=== PATIENT | male | born 1995 | race Caucasian/White ===

== ENCOUNTER → 2016-09-06 | Outpatient (CLI) | payer BC, OTHER ==
[~2016-09-06] MED LIST: ABL5 PO; AMX875 PO; ARIP1TAB8 PO; ATOM25CA PO; CLX20 PO; DEXM10TA PO; ESCI10TA17 PO; GUAN1TAB PO; GUAN1TAB12 PO; IBUP-1050 PO; LANS15TA2 PO; MISCCAP80 PO
--- NOTE | 2016-09-09 14:48 | POLYSOMNOGRAPH REPORT ---
CLINICAL DATA: A 20-year-old male with BMI of 25.5 referred by ENT for evaluation of possible sleep apnea, a history of swelling of his uvula and tonsils and reported loud snoring with awakenings through the night. He has fatigue. On the evening of 09/06/2016, a home sleep apnea test was performed using Vidmind type 3 monitor. RECORDING RESULTS: Total recording time was 10 hours. The patient's estimated sleep time and patient monitoring time was 7.1 hours. RESPIRATORY DATA: No evidence of clinically significant sleep apnea/hypopnea was documented. The SHAR was 1.7. There was 1 obstructive apneic episode and 11 hypopneic episodes recorded. The longest respiratory event recorded was 32 seconds. OXIMETRY DATA: No significant hypoxemia was seen. Oxygen kerri was 89%. Mean saturation was 93%. Time below 89% was 0 minutes. HEART RATE DATA: Heart rates ranged from 38 to 47 beats per minute. SNORING DATA: Snoring was recorded intermittently through the night. IMPRESSION: No evidence of clinically significant sleep apnea/hypopnea or nocturnal hypoxemia with an SHAR of 1.7 and an oxygen kerri of 89%. RECOMMENDATIONS: The patient should continue to practice good sleep hygiene. There was nothing on the current sleep study to suggest the need for CPAP, surgery, or an oral appliance. FREDAD
== END | disposition home or self-care (01) ==
LOC: C.NEUR 09:08
DX: G47.33 Obstructive sleep apnea (adult) (pediatric) (principal)

== ENCOUNTER 2016-11-11 14:28 | Emergency (ER) | payer BC, OTHER ==
[~2016-11-11] VITALS: Ht 175.3 cm; Wt 80.5 kg
[~2016-11-11 14:28] MED LIST changes: -AMX875 PO; -ARIP1TAB8 PO; -DEXM10TA PO; -ESCI10TA17 PO; -GUAN1TAB PO; -GUAN1TAB12 PO; -IBUP-1050 PO; -MISCCAP80 PO
[2016-11-11 14:51] VITALS: TEMP 37; Ht 175.3 cm; Wt 80.5 kg
[2016-11-11] MEDS ORDERED: SODIUM CHLORIDE 0.9% 1000ML 1,000 ML IV STA ×2 (15:57)
[2016-11-11 16:34] LABS: COMPLETE YES; EOS % 0.4 %; HEMATOCRIT 45.6 % (42-52); IG% 0.2 %; LYMPH % 32.8 %; MEAN CELL VOLUME 86.9 fL (80-100); MEAN CORPUSCULAR HEMOGLOBIN 29.5 pg (25-34); MEAN PLATELET VOLUME 9.3 fL (7.4-10.4); MONO % 7.9 %; NEUT % 58.7 %; PLATELET COUNT 182 K/uL (130-400); RED BLOOD COUNT 5.25 M/uL (4.7-6.1); WHITE BLOOD COUNT 5.19 K/uL (4.8-10.8)
[2016-11-11] MEDS ORDERED: ARIP1TAB8 PO (16:39)
[2016-11-11] MEDS ORDERED: ESCI10TA17 PO (16:48)
[2016-11-11] MEDS ORDERED: DEXM10TA PO (16:48)
[2016-11-11] MEDS ORDERED: GUAN1TAB12 PO (16:48)
[2016-11-11] MEDS ORDERED: IBUP-1050 PO (16:48)
[2016-11-11 16:52] LABS: BUN/CREATININE RATIO 10.1 (10-20); CREATININE 0.96 mg/dl (0.60-1.40); POTASSIUM 3.9 mmol/L (3.5-5.1)
[2016-11-11 18:02] LABS: URINE APPEARANCE CLEAR (CLEAR); URINE BILIRUBIN NEG (NEG); URINE COLOR DK YELLOW; URINE NITRITE NEG (NEG); URINE SPECIFIC GRAVITY 1.019 (1.000-1.030); UROBILINOGEN NEG (NEG); ZZUR CULT IF INDIC CLEAN CATCH NO
[2016-11-11 18:16] LABS: MANUAL MICROSCOPIC REQUIRED? NO; REVIEW REQ? NO
[2016-11-11 19:09] VITALS: BP 116/64; PULSE 55; O2SAT 100
--- NOTE | 2016-11-12 00:17 | EMERGENCY ROOM VISIT NOTE ---
History Report prepared by Raul: Beau Hilario Under the Supervision of: Dr. Steven Stokes M.D. First contact with patient: 15:57 Chief Complaint: URINARY SYMPTOMS Stated Complaint: REFERRED BY DOCTOR History of Present Illness The patient is a 20 year old male who presents to the Emergency Room with complaints of sudden dark urine beginning just prior to arrival. He currently rates his discomfort as a 2/10 in severity. The patient associates a headache, dizziness, weakness, and body aches with today's symptoms. He states he went to the [facility] walk in clinic, who referred the patient to the ED with concern for kidney issues. The patient notes he began feeling like he was getting a cold three days ago, and he began experiencing the body aches, headache, and dizziness today. He states his symptoms feel similar to a time a few years ago, in which, he was severely dehydrated and was given a liter of saline that made him feel better. 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 Pt denies LOC, fevers, chills, diaphoresis, visual changes, neck pain, chest pain, breathing difficulties, nausea, vomiting, abdominal pain , back pain, melena, hematochezia, numbness, lymphadenopathy, rash, or other complaints. Source of History: patient Onset: just prior to arrival Position: other (global) Symptom Intensity: 2/10 Quality: other (dark urine) Timing: other (sudden) Associated Symptoms: + headache, + urinary symptoms (dark urine), + weakness Note: Associated symptoms: dizziness, body aches. Review of Systems See HPI for pertinent positives and negatives. A total of ten systems were reviewed and were otherwise negative. Past Medical & Surgical Medical Problems: (1) ADHD (attention deficit hyperactivity disorder) (2) Anxiety (3) Asperger syndrome (4) Seizure disorder Family History Diabetes mellitus FH: celiac disease Gallbladder disease Hypertension Social History Smoking Status: Never Smoker Alcohol Use: none Marital Status: single Occupation Status: employed Current/Historical Medications Scheduled Aripiprazole (Abilify), 5 MG PO DAILY Dexmethylphenidate Hcl (Focalin), 1 TAB PO DAILY Escitalopram (Lexapro), 1 TAB PO DAILY Guanfacine Hcl (Adhd) (Intuniv), 1 TAB PO QAM Ibuprofen (Advil), 200-400 MG PO PRN UD Allergies Coded Allergies: No Known Allergies (Verified , 08/11/11) Physical Exam Vital Signs Date Time Temp Pulse Resp B/P Pulse Ox O2 Delivery O2 Flow Rate FiO2 11/11/16 19:09 55 18 116/64 100 Room Air 11/11/16 17:34 78 16 108/58 98 Room Air 11/11/16 16:35 45 16 114/61 100 11/11/16 14:51 37.0 62 20 126/77 98 Room Air Physical Exam GENERAL: Awake, alert, well-appearing, in no distress HENT: Normocephalic, atraumatic. Oropharynx unremarkable. EYES: Normal conjunctiva. Sclera non-icteric. NECK: Supple. No nuchal rigidity. FROM. No JVD. RESPIRATORY: Clear to auscultation. CARDIAC: Regular rate, normal rhythm. Extremities warm and well perfused. Pulses equal. ABDOMEN: Mild suprapubic tenderness. Soft, non-distended. No rebound or guarding. No masses. RECTAL: Deferred. MUSCULOSKELETAL: Chest examination reveals no tenderness. The back is symmetrical on inspection without obvious abnormality. There is no CVA tenderness to palpation. No joint edema. LOWER EXTREMITIES: Calves are equal size bilaterally and non-tender. No edema. No discoloration. NEURO: Normal sensorium. No sensory or motor deficits noted. SKIN: No rash or jaundice noted. Medical Decision & Procedures Laboratory Results 11/11/16 16:25 Red Blood Count 5.25, Mean Corpuscular Volume 86.9, Mean Corpuscular Hemoglobin 29.5, Mean Corpuscular Hemoglobin Concent 34.0, Mean Platelet Volume 9.3, Neutrophils (%) (Auto) 58.7, Lymphocytes (%) (Auto) 32.8, Monocytes (%) (Auto) 7.9, Eosinophils (%) (Auto) 0.4, Basophils (%) (Auto) 0.0, Neutrophils # (Auto) 3.05, Lymphocytes # (Auto) 1.70, Monocytes # (Auto) 0.41, Eosinophils # (Auto) 0.02, Basophils # (Auto) 0.00 11/11/16 16:25 Test 11/11/16 16:25 White Blood Count 5.19 K/uL (4.8-10.8) Red Blood Count 5.25 M/uL (4.7-6.1) Hemoglobin 15.5 g/dL (14.0-18.0) Hematocrit 45.6 % (42-52) Mean Corpuscular Volume 86.9 fL (80-100) Mean Corpuscular Hemoglobin 29.5 pg (25-34) Mean Corpuscular Hemoglobin Concent 34.0 g/dl (32-36) Platelet Count 182 K/uL (130-400) Mean Platelet Volume 9.3 fL (7.4-10.4) Neutrophils (%) (Auto) 58.7 % Lymphocytes (%) (Auto) 32.8 % Monocytes (%) (Auto) 7.9 % Eosinophils (%) (Auto) 0.4 % Basophils (%) (Auto) 0.0 % Neutrophils # (Auto) 3.05 K/uL (1.4-6.5) Lymphocytes # (Auto) 1.70 K/uL (1.2-3.4) Monocytes # (Auto) 0.41 K/uL (0.11-0.59) Eosinophils # (Auto) 0.02 K/uL (0-0.5) Basophils # (Auto) 0.00 K/uL (0-0.2) RDW Standard Deviation 39.3 fL (36.4-46.3) RDW Coefficient of Variation 12.3 % (11.5-14.5) Immature Granulocyte % (Auto) 0.2 % Immature Granulocyte # (Auto) 0.01 K/uL (0.00-0.02) Urine Color DK YELLOW Urine Appearance CLEAR (CLEAR) Urine pH 6.0 (4.5-7.5) Urine Specific [place] 1.019 (1.000-1.030) Urine Protein NEG (NEG) Urine Glucose (UA) NEG (NEG) Urine Ketones TRACE (NEG) Urine Occult Blood NEG (NEG) Urine Nitrite NEG (NEG) Urine Bilirubin NEG (NEG) Urine Urobilinogen NEG (NEG) Urine Leukocyte Esterase NEG (NEG) Anion Gap 4.0 mmol/L (3-11) Est Creatinine Clear Calc Drug Dose 122.8 ml/min Estimated GFR () 131.4 Estimated GFR (Non- 113.3 BUN/Creatinine Ratio 10.1 (10-20) Calcium Level 9.0 mg/dl (8.5-10.1) Total Bilirubin 0.9 mg/dl (0.2-1) Direct Bilirubin 0.2 mg/dl (0-0.2) Aspartate Amino Transf (AST/SGOT) 15 U/L (15-37) Alanine Aminotransferase (ALT/SGPT) 31 U/L (12-78) Alkaline Phosphatase 82 U/L (45-117) Total Creatine Kinase 81 U/L (39-308) Total Protein 7.1 gm/dl (6.4-8.2) Albumin 4.2 gm/dl (3.4-5.0) Lipase 103 U/L (73-393) Laboratory results reviewed by me Medications Administered Medications (Trade) Dose Ordered Sig/William Route Start Time Stop Time Status Last Admin Dose Admin Sodium Chloride 1,000 ml @ 125 mls/hr Q8H STAT IV 11/11/16 15:57 11/11/16 20:16 DC 11/11/16 15:57 125 MLS/HR Sodium Chloride (Nss 1000ml) 1,000 ml @ 999 mls/hr Q1H1M STAT IV 11/11/16 15:57 11/11/16 16:57 DC 11/11/16 16:50 999 MLS/HR ED Course 1557: Ordered Sodium Chloride 1,000 ml @ 999 mls/hr IV, Sodium Chloride 1,000 ml @ 125 mls/hr IV. 1604: The patient was evaluated in room C1B. A complete history and physical exam was performed. 3: I spoke to the pillowcase cutter to give the patient PCP information. 1903: I reevaluated the patient, and he is feeling better. Discussed results and discharge instructions: He verbalized understanding and agreement. The patient is ready for discharge. Medical Decision Triage Nursing notes reviewed. The patient's presentation and history were concerning for general malaise, myalgias and dark urine. Etiologies such as Rhabdomyolysis, myositis, renal colic,metabolic, infection, hypo/hyperglycemia, electrolyte abnormalities, cardiac sources, intracerebral event, toxicologic, neurologic, as well as others were entertained. The patient was evaluated. His physical examination is as above. IV was established. Blood work was obtained. He was given a liter normal saline. The patient had an unremarkable CBC, chemistry panel, LFTs, lipase, and total CK. Urinalysis was normal as well. The patient was reevaluated and he was feeling better. There is no evidence of rhabdomyolysis, acute kidney injury, infection, or other pathology. The patient has no pain and had no pain to consider renal colic. As the patient is doing very well at this time I discussed conservative management. He is very much in agreement and feels comfortable with going home. If he worsens in any way she will come back to the emergency department for reevaluation. The patient will otherwise follow up in the office for a recheck. By the evaluation outlined above other emergent etiologies such as those listed in the differential, as well as others, were deemed relatively unlikely. The patient was informed about the findings as listed above. All questions were answered and he was pleased with the treatment. Return instructions were outlined and the patient was discharged in stable condition. The patient was referred to internal medicine at [facility] physician group for follow-up next week for a recheck of the current condition. The chart was completed utilizing [employer] Speech voice recognition software. Grammatical errors, random word insertions, pronoun errors, and incomplete sentences are an occasional consequence of this system due to software limitations, ambient noise, and hardware issues. Any formal questions or concerns about the content, text, or information contained within the body of this dictation should be directly addressed to the physician for clarification. Impression Primary Impression: Myalgia Additional Impression: Malaise Scribe Attestation The scribe's documentation has been prepared under my direction and personally reviewed by me in its entirety. I confirm that the note above accurately reflects all work, treatment, procedures, and medical decision making performed by me. Departure Information Dispostion Home / Self-Care Referrals No Doctor, Assigned (PCP) Forms HOME CARE DOCUMENTATION FORM, IMPORTANT VISIT INFORMATION, Work Instructions Patient Instructions [facility] Additional Instructions Acetaminophen(Tylenol) may be used for fever or pain. Use 1000mg every six hours as needed. Avoid using more than 4000mg in a 24 hour period. (AND/OR) Ibuprofen(Motrin, Advil) may be used for fever or pain. Use 600mg every six hours as needed. Take with food. Avoid using more than 2400mg in a 24 hour period. Do not use 2400mg per day for more than three consecutive days without physician direction. Prolonged inappropriate use can lead to stomach upset or ulcers. Rest and drink plenty of fluids. Return to the ER for severe muscle pain, urinary issues, severe headache, neck stiffness, chest pain, difficulty breathing, abdominal pain, back pain, fevers, vomiting, worsening of your condition, or as needed. Follow up with a primary physician next week for a recheck of your current condition. Contact a physician from the list provided. Problem Qualifiers
[2017-03-29] MEDS ORDERED: GUAN1TAB PO (15:23)
[2017-03-29] MEDS ORDERED: MISCCAP80 PO (15:24)
[2017-03-29] MEDS ORDERED: AMX875 PO (15:24)
== END 2016-11-11 19:25 | disposition home or self-care (01) ==
LOC: C.EDB 14:30 → C.EDC 19:25
DX: M79.1 Myalgia (principal); R53.81 Other malaise; R42 Dizziness and giddiness; R53.1 Weakness; F90.9 Attention-deficit hyperactivity disorder, unspecified type; F41.9 Anxiety disorder, unspecified; F84.5 Asperger's syndrome; G40.909 Epilepsy, unspecified, not intractable, without status epilepticus; Z83.3 Family history of diabetes mellitus; Z82.49 Family history of ischemic heart disease and other diseases of the circulatory system; Z79.899 Other long term (current) drug therapy

== ENCOUNTER → 2017-04-29 | Outpatient (CLI) | payer BC, OTHER ==
[~2017-04-29] MED LIST changes: -ABL5 PO; +AMX875 PO; +ARIP1TAB8 PO; -ATOM25CA PO; -CLX20 PO; +ESCI10TA17 PO; +GUAN1TAB PO; +IBUP-1050 PO; -LANS15TA2 PO; +MISCCAP80 PO
[2017-04-29 13:26] LABS: COMPLETE YES; EOS % 1.4 %; HEMATOCRIT 48.1 % (42-52); LYMPH % 31.6 %; LYMPH ABS # 1.36 K/uL (1.2-3.4); MEAN CELL VOLUME 88.9 fL (80-100); MEAN CORPUSCULAR HEMOGLOBIN 30.9 pg (25-34); MEAN CORPUSCULAR HGB CONC 34.7 g/dl (32-36); MEAN PLATELET VOLUME 9.4 fL (7.4-10.4); MONO % 9.5 %; NEUT % 57.5 %; PLATELET COUNT 193 K/uL (130-400); RED BLOOD COUNT 5.41 M/uL (4.7-6.1)
[2017-04-29 13:39] LABS: PROTHROMBIN TIME (PATIENT) 10.8 SECONDS (9.0-12.0)
[2017-04-29 14:04] LABS: POTASSIUM 4.1 mmol/L (3.5-5.1)
== END | disposition home or self-care (01) ==
LOC: C.LAB 12:42
DX: Z01.818 Encounter for other preprocedural examination (principal)

== ENCOUNTER → 2017-05-01 | Day surgery (SDC) | payer BC, OTHER ==
[2017-03-29 15:25] VITALS: Ht 175.3 cm; Wt 81.8 kg
[~2017-05-01] VITALS: Ht 175.3 cm; Wt 81.8 kg
[~2017-05-01] MED LIST changes: +ATROPINE SULFATE 0.1 MG/ML 5ML SYR IV PRN; +BACITRACIN/POLYMYXIN B OINT 15 GM TUBE EXT ONE; +DEXAMETHASONE SOD INJ 4 MG/ML VIAL ONE; +EpHEDrine SULFATE INJ 50 MG/ML AMP IV PRN; +FENTANYL CITRATE INJ 50 MCG/1 ML 2 ML VIAL IV PRN; +FENTANYL CITRATE INJ 50 MCG/1 ML 2 ML VIAL ONE; +LACTATED RINGER'S 1000ML 1,000 ML IV SCH; +LIDOCAINE 2% JELLY 5 ML TUBE EXT ONE; +LIDOCAINE HCL 2% 2 ML VIAL (20MG/ML) ONE; +MIDAZOLAM HCL 1 MG/ML 2ML VIAL ONE; +ONDANSETRON INJ 2 MG/ML 2 ML VIAL IV PRN; +ONDANSETRON INJ 2 MG/ML 2 ML VIAL ONE; +OXYCODONE HCL SOLN 5 MG/5 ML UDC PO PRN; +PROMETHAZINE HCL INJ 6.25 MG in SODIUM CHLORIDE 0.9% 50ML 50 ML IV PRN; +PROPOFOL IV EMULSION 10 MG/ML 20 ML VIAL IV ONE
--- NOTE | 2017-05-01 06:46 | History and Physical: Surg Cnt ---
History & Physical Date May 01, 2017. Chief Complaint CHRONIC TONSILLITIS History of Present Illness The patient is a 21 year old male with complaints of CHRONIC TONSILLITIS WITH TONSILLITH FORMATION WITH HALITOSIS, DYSPHAGIA, AND LOW-GRADE SORE THROAT. Past Medical/Surgical History Medical Problems: (1) ADHD (attention deficit hyperactivity disorder) (2) Anxiety (3) Asperger syndrome (4) Seizure disorder 5. DEPRESSION 6. EXERCISE INDUCED ASTHMA PSH: S/P ORAL SURGERY Allergies Coded Allergies: No Known Allergies (Verified , 05/01/17) Home Medications Scheduled Aripiprazole (Abilify), 5 MG PO HS Escitalopram (Lexapro), 1 TAB PO QAM Guanfacine Hcl (Tenex), 1 TAB PO HS Ibuprofen (Advil), 200-400 MG PO PRN UD Physical Examination Skin: warm/dry, no rash Eyes: normal inspection, EOMI, sclerae normal ENT: + pertinent finding (3+ R AND 2+ L TONSILS WITH MILD INFLAMMATION) Head: normocephalic, atraumatic Neck: supple, no adenopathy, trachea midline Respiratory/Chest: lungs clear, normal breath sounds, no respiratory distress Cardiovascular: regular rate, rhythm, no edema, no murmur Neurologic/Psych: no motor/sensory deficits, alert, normal reflexes, oriented x 3 Diagnosis CHRONIC TONSILLITIS Plan of Treatment TONSILLECTOMY, POSSIBLE ADENOIDECTOMY
--- NOTE | 2017-05-01 08:17 | [facility] Operative Report ---
Operative Report Operative Date May 01, 2017. Pre-Operative Diagnosis Chronic Tonsillitis, Adenoid Hypertrophy Post-Operative Diagnosis Same Procedure(s) Performed Tonsillectomy and Adenoidectomy Surgeon Dr. Toro Python Architect Surgeon(s) None Estimated Blood Loss 0 mL Findings 1. 2-3+ T&A WITH R-SIDED TONSILLITH Specimens A. Right Tonsil B. Left Tonsil I attest to the content of the Intraoperative Record and any orders documented therein. Any exceptions are noted below.
--- NOTE | 2017-05-01 08:19 | Discharge Instructions ---
Discharge Instructions Date of Service May 01, 2017. Admission Reason for Admission: Chronic Tonsillitis, Snoring Discharge Discharge Diagnosis / Problem: SAME Discharge Goals Goal(s): Therapeutic intervention Activity Recommendations Activity Limitations: as noted below LIGHT ACTIVITY FOR 2 WEEKS; NO DRIVING WHILE ON OXYCODONE . Current Hospital Diet Patient's current hospital diet: Full Liquid Diet Discharge Diet Recommended Diet: Full Liquid Diet Diet Texture: Mechanical Soft (ground) Procedures Procedures Performed: Tonsillectomy and Adenoidectomy Pending Studies Studies pending at discharge: no Medical Emergencies . Who to Call and When: Medical Emergencies: If at any time you feel your situation is an emergency, please call 911 immediately. . Non-Emergent Contact Non-Emergency issues call your: Surgeon, Urologist . . "Provider Documentation" section prepared by Saturnino Toro. . VTE Core Measure Inpt VTE Proph given/why not?: SCD's
--- NOTE | 2017-05-01 08:48 | OPERATIVE REPORT ---
DATE OF OPERATION: 05/01/2017 PREOPERATIVE DIAGNOSIS: Chronic tonsillitis. POSTOPERATIVE DIAGNOSIS: Same with the addition of adenoid hypertrophy. PROCEDURE: Tonsillectomy and adenoidectomy. SURGEON: Dr. Saturnino Toro. ANESTHESIA: General endotracheal. ESTIMATED BLOOD LOSS: Zero. FINDINGS: 1. Normal palate. 2. 2-3 adenoids. 3. 2-3+ tonsils with right-sided tonsilliths present. SPECIMENS: Right and left tonsil sent separately for permanent pathological assessment. COMPLICATIONS: None. INDICATIONS FOR THE PROCEDURE: The patient is a 21-year-old male with the above-mentioned history, who presents for the above-mentioned procedure on an outpatient elective basis. DESCRIPTION OF PROCEDURE: After informed consent had been obtained from the patient, the patient was wheeled to the operating room and placed on the operating table in the supine position. Monitors were placed. After induction of general endotracheal anesthesia, the table was turned 90 degrees and the patient's head and neck were gently extended. Antibiotic ointment was applied to lips and a mouth gag was carefully inserted, opened, and stabilized on a roll of towels. The palate was inspected and was found to be normal. A catheter was then inserted into the right nasal cavity and this was used to elevate the soft palate and uvula. A laryngeal mirror was used to inspect the nasopharynx and the intraoperative findings of 2-3+ adenoid tissue. This was removed using suction Bovie electrocautery while achieving hemostasis simultaneously. An Allis clamp was then used to grasp the right tonsil in the superior pole and Bovie electrocautery was used to remove the tonsil in the capsular plane with care to preserve the underlying mucosa and musculature of the anterior and posterior tonsillar pillars. The left tonsil was then removed in a similar fashion. Intraoperative findings were of 2-3+ tonsils with a right-sided tonsilliths. The tonsils were sent separately for permanent pathological assessment. The oral cavity and oropharynx were then irrigated and suctioned. The mouth gag was released for 1 minute. This was reopened and hemostasis was confirmed. An orogastric tube was placed and the stomach was suctioned free of air and stomach contents. 2% lidocaine jelly was placed in the bilateral tonsillar fossae for added anesthetic effect. This marked the end of the case. The patient tolerated the procedure well and there were no apparent complications. The patient was extubated and transferred to recovery room in stable condition. I attest to the content of the Intraoperative Record and any orders documented therein. Any exception s are noted below.
--- NOTE | 2017-05-01 09:41 | Anesthesia Progress Nt - [facility] ---
Anesthesia Post Op Note Date & Time May 01, 2017 at 09:41 Vital Signs Pain Intensity: 4 Vital Signs Past 12 Hours Date Time Temp Pulse Resp B/P (MAP) Pulse Ox O2 Delivery O2 Flow Rate FiO2 05/01/17 09:16 36.7 77 16 150/105 (120) 98 Room Air 05/01/17 09:15 155/103 05/01/17 09:11 91 14 98 05/01/17 09:11 90 14 05/01/17 09:10 146/104 05/01/17 09:08 153/102 05/01/17 09:07 146/106 05/01/17 09:06 91 16 05/01/17 09:06 92 16 98 05/01/17 09:06 37.1 84 15 153/102 99 Room Air 05/01/17 09:05 94 19 153/100 98 05/01/17 09:05 91 19 05/01/17 09:00 95 17 05/01/17 09:00 94 17 135/99 97 05/01/17 08:55 91 12 05/01/17 08:55 90 12 144/96 98 05/01/17 08:50 101 32 138/93 100 05/01/17 08:50 100 32 05/01/17 08:45 90 18 05/01/17 08:45 92 18 133/81 100 05/01/17 08:40 100 19 134/91 100 05/01/17 08:40 99 19 05/01/17 08:36 137/82 05/01/17 08:35 86 05/01/17 08:35 36.5 88 18 131/82 98 Mask 6 05/01/17 08:35 86 98 05/01/17 06:27 36.4 67 18 136/88 (104) 100 Room Air Notes Mental Status: alert / awake / arousable, participated in evaluation Pt Amnestic to Procedure: Yes Nausea / Vomiting: adequately controlled Pain: adequately controlled Airway Patency, RR, SpO2: stable & adequate BP & HR: stable & adequate Hydration State: stable & adequate Anesthetic Complications: no major complications apparent
[2017-05-01 09:53] VITALS: BP 148/96; PULSE 78; O2SAT 99
== END | disposition home or self-care (01) ==
LOC: X.SURG 06:10
DX: J35.01 Chronic tonsillitis (principal); J35.8 Other chronic diseases of tonsils and adenoids; R19.6 Halitosis; R13.10 Dysphagia, unspecified; F84.5 Asperger's syndrome; Z98.890 Other specified postprocedural states; F41.9 Anxiety disorder, unspecified; Z68.26 Body mass index [BMI] 26.0-26.9, adult

== ENCOUNTER 2017-05-27 19:41 | Emergency (ER) | payer OTHER, BC ==
[~2017-05-27] VITALS: Ht 177.8 cm; Wt 82.6 kg
[~2017-05-27 19:41] MED LIST changes: -AMX875 PO; -ATROPINE SULFATE 0.1 MG/ML 5ML SYR IV PRN; -BACITRACIN/POLYMYXIN B OINT 15 GM TUBE EXT ONE; -DEXAMETHASONE SOD INJ 4 MG/ML VIAL ONE; -EpHEDrine SULFATE INJ 50 MG/ML AMP IV PRN; -FENTANYL CITRATE INJ 50 MCG/1 ML 2 ML VIAL IV PRN; -FENTANYL CITRATE INJ 50 MCG/1 ML 2 ML VIAL ONE; -IBUP-1050 PO; -LACTATED RINGER'S 1000ML 1,000 ML IV SCH; -LIDOCAINE 2% JELLY 5 ML TUBE EXT ONE; -LIDOCAINE HCL 2% 2 ML VIAL (20MG/ML) ONE; -MIDAZOLAM HCL 1 MG/ML 2ML VIAL ONE; -MISCCAP80 PO; -ONDANSETRON INJ 2 MG/ML 2 ML VIAL IV PRN; -ONDANSETRON INJ 2 MG/ML 2 ML VIAL ONE; -OXYCODONE HCL SOLN 5 MG/5 ML UDC PO PRN; -PROMETHAZINE HCL INJ 6.25 MG in SODIUM CHLORIDE 0.9% 50ML 50 ML IV PRN; -PROPOFOL IV EMULSION 10 MG/ML 20 ML VIAL IV ONE
[2017-05-27 19:46] VITALS: TEMP 36.9; Ht 177.8 cm; Wt 82.6 kg
[2017-05-27] MEDS ORDERED: FLEXERIL HOME PACK 10 MG VIAL PO STA (20:06)
[2017-05-27] MEDS ORDERED: CYCL10TA6 PO (20:14)
--- NOTE | 2017-05-27 20:15 | EMERGENCY ROOM VISIT NOTE ---
ED Visit Note First contact with patient: 19:53 CHIEF COMPLAINT: Low back pain HISTORY OF PRESENT ILLNESS: This 21-year-old male patient presents to the emergency department via private vehicle accompanied by female complaining of pain in the low back which began earlier this evening when he was at work around 6:30 PM. The patient states that he was crouched down, and reached forward and he turned and felt a cracking sensation in his back and now notes pain in the hips. He rates the pain as a 6-7/10. He has tried ibuprofen without relief. He feels as though his legs are weak. He notes they're shaky. He is able to stand and bear weight. He denies any incontinence of bowel or bladder, numbness or tingling in the genital region, or abdominal pain. There is some nausea. REVIEW OF SYSTEMS: A review of systems was performed with positives and pertinent negatives listed in the history of present illness. All other systems were reviewed and are negative. ALLERGIES: None MEDICATIONS: As noted below PMH: Tonsillectomy, stomach problems SOCIAL HISTORY: Patient is employed and lives locally PHYSICAL EXAM: VITALS: Vitals are noted on the nurse's note and reviewed by myself. Vital signs stable. GENERAL: 21-year-old male, in no acute distress, nondiaphoretic, well-developed well-nourished. SKIN: The skin was without rashes, erythema, edema, or bruising. ABDOMEN: Positive bowel sounds x 4. Soft, nontender, without masses or organomegaly. Browne sign negative. MUSCULOSKELETAL: No muscle atrophy, erythema, or edema noted of the back. There is no tenderness over the lumbar spinous processes. There is there is tenderness over the paraspinous muscles of the lumbar spine bilaterally. There is no tenderness over the thoracic spine or paraspinous muscles. There are inferior lumbar muscle spasms present. The patient is slow to move around with maximum tenderness with the lumbar spine. Negative straight leg raise test. NEURO: Patient was alert and oriented to person place and time. Deep tendon reflexes 2+ in the lower extremities. Dorsalis pedis pulse 2+ bilaterally. Strength 5/5 and equal in the bilateral lower extremities. EMERGENCY DEPARTMENT COURSE: Patient was seen and evaluated as above. He presents to us today with low back pain. There is no trauma. I suspect he likely is experiencing lumbar strain as there is identifiable tenderness to palpation overlying the insertion points of the lumbar paraspinous musculature. There is no evidence of cauda equina syndrome. He is able to stand. Reflexes are excellent in the legs. He'll be discharged home on Flexeril, and he already has a prescription for oxycodone. He is to follow with the approval Workmen's Compensation individual regarding his visit here today. He was educated upon management, educated upon worrisome symptoms which to return, had questions prior to discharge, and was discharged home in good condition. In the treatment of this patient controlled medication was utilized and therefore the [facility], Prescription Drug Monitoring Program website was utilized to look up this patient. No concerns were identified that would prohibit or alter my treatment decision. In evaluation treatment this patient the following differential diagnoses were entertained: Sprain, strain, dislocation, subluxation, cauda equina syndrome, among others. Problem List Medical Problems: (1) ADHD (attention deficit hyperactivity disorder) Status: Chronic (2) Anxiety Status: Chronic (3) Asperger syndrome Status: Chronic (4) Seizure disorder Status: Chronic Current/Historical Medications Scheduled Aripiprazole (Abilify), 5 MG PO HS Cyclobenzaprine Hcl (Flexeril), 10 MG PO TID Escitalopram (Lexapro), 1 TAB PO QAM Guanfacine Hcl (Tenex), 1 TAB PO HS Allergies Coded Allergies: No Known Allergies (Verified , 05/01/17) Vital Signs Date Time Temp Pulse Resp B/P (MAP) Pulse Ox O2 Delivery O2 Flow Rate FiO2 05/27/17 20:26 61 18 118/65 97 05/27/17 19:46 36.9 83 18 142/94 97 Room Air Medications Administered Medications (Trade) Dose Ordered Sig/William Route Start Time Stop Time Status Last Admin Dose Admin Cyclobenzaprine HCl (FLEXERIL 10MG Home Pack) 1 homepack UD STAT PO 05/27/17 20:06 05/27/17 20:08 DC 05/27/17 20:24 1 HOMEPACK Departure Information Impression Primary Impression: Strain of lumbar region Dispostion Home / Self-Care Condition GOOD Prescriptions Cyclobenzaprine Hcl (FLEXERIL) 10 Mg Tab 10 MG PO TID for 5 Days, #15 TAB Prov: Ramírez Hernandez, CARLEY 05/27/17 Referrals No Doctor, Assigned (PCP) Patient Instructions My [facility] Additional Instructions You have been treated in the Emergency Department for Back Pain. You have received pain medicine in the emergency department which impairs your ability to operate a vehicle. It is illegal for you to drive after receiving these medicines. You have been previously prescribed OXYCODONE to be used for pain control. This is a narcotic medication. You cannot drive or consume alcohol while on this medicine. This medicine should only be used for pain that cannot be controlled with afyq-rsn-nfnceso pain medicines. You have been prescribed Flexeril (cyclobenzaprine) 1 tabs orally, UP TO three times per day. Do NOT exceed 30 mg (3tabs) per day. Take your first dose at bedtime as it can make you drowsy. Always take all medications as prescribed. This may interact with your other medications, please watch for fevers, or other unusual/additional symptoms. For pain control, you can use the following jagy-qrl-cctetss medicines: - Regular strength (325mg/tab) Tylenol (acetaminophen) 2 tabs every 4-6 hours as needed. Do not exceed 12 tablets in a 24 hour period. Avoid taking more than 3 grams (3000 mg) of Tylenol per day. This includes any other sources of acetaminophen you may take on a regular basis. - Regular strength (200 mg/tab) Advil (ibuprofen) 1-2 tabs every 4-6 hours as needed. Do not exceed a dose of 3200 mg per day. If this is an acute injury, ice can be applied to the area of pain for the first 3 days to help decrease pain and inflammation. After the first 3 days, a heating pad can be used over the area for continued soothing relief. You should schedule a follow-up appointment in 2-3 days with your Primary Care Provider/ Approved workmans comp individual for further evaluation and treatment of your back pain. Return to the Emergency Department if your current symptoms worsen despite treatment course outlined above, or if you develop any of the following symptoms : intractable pain despite aforementioned treatment course, loss of control of your bowel or bladder, numbness or tingling in your groin, or development of a fever.
[2017-05-27 20:26] VITALS: BP 118/65; PULSE 61; O2SAT 97
== END 2017-05-27 20:26 | disposition home or self-care (01) ==
LOC: C.EDB 19:41 → C.EDD 20:26
DX: S39.012A Strain of muscle, fascia and tendon of lower back, initial encounter (principal); X58.XXXA Exposure to other specified factors, initial encounter

== ENCOUNTER → 2017-08-08 | Outpatient (CLI) | payer OTHER | END | disposition home or self-care (01) | LOC: C.LABBC 08:42 | PROVIDERS: ATTEND Psychiatry & Neurology Psychiatry | DX: Z79.899 Other long term (current) drug therapy (principal) ==